=== PATIENT | male | born 1970 | race Caucasian/White ===

== ENCOUNTER 2017-06-15 12:35 | Observation (INO) | payer OTHER ==
[~2017-06-15] VITALS: Ht 190.5 cm; Wt 101.6 kg
[~2017-06-15 12:35] MED LIST: HYDR10SO PO; LISI-363 PO; LITH1TAB3 PO; METHY10 PO
[2017-06-15 13:00] VITALS: BP 107/84; PULSE 81; RESP 20; TEMP 97; O2SAT 98
[2017-06-15 14:00] VITALS: BP 107/84; PULSE 81; RESP 20; TEMP 97; O2SAT 98
[2017-06-15] MEDS ORDERED: NALOXONE HCL 0.4 MG/ML AMP IV PUSH PRN (14:00)
[2017-06-15] MEDS ORDERED: ACETAMINOPHEN 325 MG TAB PO PRN (14:00)
[2017-06-15] MEDS ORDERED: SENNOSIDES 8.6 MG TAB PO PRN (14:00)
[2017-06-15] MEDS ORDERED: ONDANSETRON HCL 4 MG/2 ML VIAL IVP PRN (14:00)
[2017-06-15] MEDS ORDERED: SODIUM CHLORIDE 0.9% FLUSH 10 ML FLUSH IV FLUSH PRN (14:00)
--- NOTE | 2017-06-15 14:44 | HHI.HP ---
[facility] Primary [facility]ician No Primary Care Physician Admission Diagnosis Left nephrolithiasis Hydronephrosis Right lower lobe pneumonia Diagnoses: (1) Nephrolithiasis (2) Hydronephrosis (3) Pneumonia Chief Complaint: Flank pain Travel History International Travel<30 Days: No Contact w/Intl Traveler <30 Da: No Traveled to Known Affected Are: No History of Present Illness This is a 46-year-old male patient known medical history of ADHD, OCD and hypertension who presented to the ED with a 2 day history of bilateral flank pain. Patient does admit to history of frequent kidney stones. States he has passed these on his own usually. Patient does state that the pain was bilateral in his leg area, more so in his left side than right, rated a 10 out of 10 on pain scale and was intermittent in nature, denies any known aggravating or alleviating factors. Denies any recent illness including fever, chills, cough, abdominal pain, nausea, vomiting, diarrhea dysuria. Patient does follow with the primary care doctor but does not know the name. Patient denies any home medications. Review of Systems Constitutional: DENIES: Fatigue, Fever, Chills Eyes: DENIES: Blurred vision, Diplopia Respiratory: DENIES: Cough, Sputum production, Shortness of breath Cardiovascular: DENIES: Chest pain Gastrointestinal: DENIES: Abdominal pain, Black stools, Bloody stools, Constipation, Diarrhea, Nausea, Vomiting, Difficulty Swallowing Genitourinary: COMPLAINS OF: Dysuria Musculoskeletal: DENIES: Joint pain Hematologic/lymphatic: DENIES: Bruising Immunologic/allergic: DENIES: Eczema Psychiatric: COMPLAINS OF: Anxiety Except as stated in HPI: all other systems reviewed are Neg Flank pain Past Family Social History Past Medical History ADHD OCD Anxiety depression Hyperlipidemia Hypertension Frequent kidney stones Past Surgical History Cholecystectomy L5-S1 repair Reported Medications Active No Active Prescriptions or Reported Medications Allergies: Coded Allergies: No Known Allergies (Verified Adverse Reaction, Unknown, 06/15/17) Active Ordered Medications Current Medications Medications (Trade) Dose Ordered Sig/Noah Route Start Time Stop Time Status Last Admin Lactated Ringer's 1,000 ml @ 100 mls/hr Q10H IV 06/15/17 13:56 06/15/17 14:52 (NS Flush) 2 ml UNSCH PRN IV FLUSH 06/15/17 14:00 (NS Flush) 2 ml BID IV FLUSH 06/15/17 21:00 (Tylenol) 650 mg Q4H PRN PO 06/15/17 14:00 06/15/17 14:51 (Zofran Inj) 4 mg Q6H PRN IVP 06/15/17 14:00 (Narcan Inj) 0.4 mg UNSCH PRN IV PUSH 06/15/17 14:00 (Senokot) 17.2 mg Q12H PRN PO 06/15/17 14:00 Family History Denies any significant family medical history. Social History Denies any history or current tobacco abuse. Denies any alcohol or illicit drug use. Physical Exam Vital Signs Vital Signs Date Time Temp Pulse Resp B/P (MAP) Pulse Ox O2 Delivery O2 Flow Rate FiO2 06/15/17 13:00 97.0 81 20 107/84 (92) 98 Physical Exam GENERAL: Well-developed, well-nourished patient in NAD. Disheveled SKIN: Warm and dry. No rash. HEAD: Normocephalic. Atraumatic. EYES: Pupils equal and round. No scleral icterus. No injection or drainage. ENT: No nasal bleeding or discharge. Mucous membranes pink and moist. NECK: Supple. Trachea midline. CARDIOVASCULAR: Regular rate and rhythm. S1, S2 noted. No murmur appreciated. RESPIRATORY: No accessory muscle use. Clear to auscultation. Breath sounds equal bilaterally. GASTROINTESTINAL: Abdomen soft, non-tender, nondistended. Normoactive bowel sounds x4. : Bilateral CVA tenderness. MUSCULOSKELETAL: No obvious deformities. Extremities without clubbing, cyanosis , or edema. NEUROLOGICAL: Awake and alert. No obvious cranial nerve deficits. Motor grossly within normal limits. 5/5 muscle strength in bilateral upper and lower extremities. Normal speech. PSYCHIATRIC: Appropriate mood and affect; insight and judgment normal. Septic Shock Reassessment Septic shock perfusion: reassessment completed Caprini VTE Risk Assessment Caprini VTE Risk Assessment: No/Low Risk (score <= 1) Caprini Risk Assessment Model Point Value = 1 Point Value = 2 Point Value = 3 Point Value = 5 Age 41-60 Minor surgery BMI > 25 kg/m2 Swollen legs Varicose veins or History of unexplained or recurrent spontaneous Oral contraceptives or hormone replacement Sepsis (< 1 month) Serious lung disease, including pneumonia (< 1 month) Abnormal pulmonary function Acute myocardial infarction Congestive heart failure (< 1 month) History of inflammatory bowel disease Medical patient at bed rest Age 61-74 Arthroscopic surgery Major open surgery (> 45 min) Laparoscopic surgery (> 45 min) Malignancy Confined to bed (> 72 hours) Immobilizing plaster cast Central venous access Age >= 75 History of VTE Family history of VTE Factor V Leiden Prothrombin [id number] Lupus anticoagulant Anticardiolipin antibodies Elevated serum homocysteine Heparin-induced thrombocytopenia Other congenital or acquired thrombophilia Stroke (< 1 month) Elective arthroplasty Hip, pelvis, or leg fracture Acute spinal cord injury (< 1 month) Prophylaxis Regimen Total Risk Factor Score Risk Level Prophylaxis Regimen 0-1 Low Early ambulation 2 Moderate Order ONE of the following: *Sequential Compression Device (SCD) *Heparin 5000 units SQ BID 3-4 Higher Order ONE of the following medications: *Heparin 5000 units SQ TID *Enoxaparin/Lovenox 40 mg SQ daily (WT < 150 kg, CrCl > 30 mL/min) *Enoxaparin/Lovenox 30 mg SQ daily (WT < 150 kg, CrCl > 10-29 mL/min) *Enoxaparin/Lovenox 30 mg SQ BID (WT < 150 kg, CrCl > 30 mL/min) AND/OR *Sequential Compression Device (SCD) 5 or more Highest Order ONE of the following medications: *Heparin 5000 units SQ TID (Preferred with Epidurals) *Enoxaparin/Lovenox 40 mg SQ daily (WT < 150 kg, CrCl > 30 mL/min) *Enoxaparin/Lovenox 30 mg SQ daily (WT < 150 kg, CrCl > 10-29 mL/min) *Enoxaparin/Lovenox 30 mg SQ BID (WT < 150 kg, CrCl > 30 mL/min) AND *Sequential Compression Device (SCD) Assessment and Plan Problem List: (1) Hydronephrosis ICD Code: N13.30 - Unspecified hydronephrosis (2) Nephrolithiasis ICD Code: N20.0 - Calculus of kidney (3) Pneumonia ICD Code: J18.9 - Pneumonia, unspecified organism Assessment and Plan This is a 46-year-old male patient known medical history of ADHD, OCD and hypertension who presented to the ED with a 2 day history of bilateral flank pain. Patient does admit to history of frequent kidney stones. Nephrolithiasis Hydronephrosis Acute kidney injury suspect secondary to above. - Abdomen/pelvis CT reviewed showing 4 x 7 calcified proximal ureteral calculus with resultant moderate left-sided hydronephrosis. Additional bilateral nonobstructing calyceal calculi measuring up to 8 mm on the left and 3-4 mm in the right. - Urology has been consulted, patient will undergo surgery today at the [facility], will be transferred. - Creatinine 1.4 upon presentation. Continue IV fluids. Avoid nephrotoxins. Continue to follow BMP. Right lower lobe community-acquired pneumonia - CT reviewed showing patchy diffuse airspace consolidation in the right lower lobe consistent with infectious or inflammatory process. - Patient has been started on azithromycin and ceftriaxone IV. Will continue. Monitor for any signs of infection. Patient is afebrile. He does have leukocytosis with left band shift. Follow CBC. Elevated random glucose upon presentation: 271. Will add hemoglobin A1c to labs. Patient denies any history of diabetes. ADA diet. DVT prophylaxis: SCDs. Teresa Morel Jun 15, 2017 14:44
[2017-06-15] MEDS: LACTATED RINGER'S 1000 ML INJ 1,000 ML IV SCH ×2 (14:52→23:54)
[2017-06-15] MEDS: cefTRIAXone INJ 1,000 MG in SODIUM CHLORIDE 0.9% INJ 100 ML IV SCH (16:35)
[2017-06-15] MEDS: AZITHROMYCIN INJ 500 MG in SODIUM CHLOR 0.9% 250 ML INJ 250 ML IV SCH (17:03)
[2017-06-15 17:09] VITALS: RESP 18
[2017-06-15] MEDS ORDERED: ACETAMINOPHEN/HYDROcodone 325 MG/5 MG TAB PO PRN (17:15)
[2017-06-15] MEDS: MORPHINE SULFATE 2 MG/ML SYRINGE IV PUSH PRN ×2 (17:48→22:01)
[2017-06-15 20:00] VITALS: BP 115/59; PULSE 80; RESP 18; TEMP 98.1; O2SAT 98
[2017-06-15] MEDS: ACETAMINOPHEN/HYDROcodone 325 MG/5 MG TAB PO PRN ×2 (20:19→23:54)
[2017-06-15] MEDS: SODIUM CHLORIDE 0.9% FLUSH 10 ML FLUSH IV FLUSH SCH (20:19)
[2017-06-16 00:09] VITALS: BP 111/68; PULSE 76; RESP 18; TEMP 97.4; O2SAT 96
[2017-06-16] MEDS ORDERED: CHLORHEXIDINE GLUCONATE 2 % 1 PACK (2 CLOTHS) TOPICAL PRN (00:15)
[2017-06-16] MEDS ORDERED: POVIDONE IODINE 5% (ANTISEPSIS KIT) 4 APPLICATIONS EACH NARE PRN (00:15)
[2017-06-16] MEDS ORDERED: LACTATED RINGER'S 1000 ML IV PRN (00:15)
[2017-06-16] MEDS ORDERED: SODIUM CHLORID 0.9% 500 ML IV PRN (00:15)
[2017-06-16] MEDS: MORPHINE SULFATE 2 MG/ML SYRINGE IV PUSH PRN ×3 (02:16→20:52)
[2017-06-16 04:00] VITALS: BP 101/67; PULSE 74; RESP 18; TEMP 98.1; O2SAT 97
[2017-06-16] MEDS: ACETAMINOPHEN/HYDROcodone 325 MG/5 MG TAB PO PRN ×2 (05:08→12:20)
[2017-06-16 05:55] LABS: BASOPHIL % 0.4 % (0.0-2.0); EOSINOPHIL # 0.2 TH/MM3 (0-0.4); EOSINOPHIL % 2.1 % (0.0-4.0); HEMATOCRIT 40.3 % (39.0-51.0); HEMOGLOBIN 13.7 GM/DL (13.0-17.0); LYMPH % 20.5 % (9.0-44.0); LYMPHOCYTE # 1.5 TH/MM3 (1.0-4.8); MEAN CELL VOLUME 90.2 FL (80.0-100.0); MEAN CORPUSCULAR HEMOGLOBIN 30.7 PG (27.0-34.0); MEAN PLATELET VOLUME 7.4 FL (7.0-11.0); MONO % 9.8 % (0.0-8.0); MONOCYTE # 0.7 TH/MM3 (0-0.9); NEUT % 67.2 % (16.0-70.0); PLATELET COUNT 317 TH/MM3 (150-450); RED BLOOD COUNT 4.47 MIL/MM3 (4.50-5.90); RED CELL DISTRIBUTION WIDTH 13.8 % (11.6-17.2); WHITE BLOOD COUNT 7.4 TH/MM3 (4.0-11.0)
[2017-06-16 06:11] LABS: BICARBONATE 23.3 MEQ/L (21.0-32.0); CALCIUM 8.8 MG/DL (8.5-10.1); CREATININE 1.25 MG/DL (0.60-1.30)
--- NOTE | 2017-06-16 06:20 | RADRPT ---
EXAM DATE/TIME: 06/16/2017 04:55 [place] COMPARISON: No previous studies available for comparison. INDICATIONS : Left flank pain MEDICAL HISTORY : Hypertension. Renal calculi. Cholelithiasis SURGICAL HISTORY : Cholecystectomy. ENCOUNTER: Subsequent ACUITY: 2 days PAIN SCORE: 6/10 LOCATION: Left flank FINDINGS: Supine view of the abdomen was performed. Cervical clips within the right upper quadrant. The abdomi nal bowel gas pattern is normal. Venous calcifications overlie the pelvis. No abnormal masses, calci fications, or organomegaly is seen. The osseous structures are unremarkable. CONCLUSION: No discernible renal or ureteral stones. Felix Diggs Jr., MD on June 16, 2017 at 6:17 Board Certified Radiologist. This report was verified electronically.
[2017-06-16 08:00] VITALS: BP 124/66; PULSE 85; RESP 16; TEMP 97.3; O2SAT 96
[2017-06-16] MEDS ORDERED: IOHEXOL 350 MG/ML 50 ML BTL (for RAD DIAG) OTHER ONE (08:58)
[2017-06-16] MEDS: SODIUM CHLORIDE 0.9% FLUSH 10 ML FLUSH IV FLUSH SCH ×2 (09:00→20:54)
[2017-06-16] MEDS ORDERED: DO NOT ADM ANY ANTICOAGULANT DRUGS PRN (09:18)
[2017-06-16] MEDS ORDERED: MIDAZOLAM HCL 2 MG/2 ML VIAL ONE (09:24)
--- NOTE | 2017-06-16 09:34 | MP ---
cc: Raymond Chinchilla MD, Arash MD DATE OF OPERATION: 06/16/2017 DATE OF PROCEDURE: 06/16/2017. PREOPERATIVE DIAGNOSES: 1. Left proximal ureteral stone with mild hydronephrosis. 2. Left flank pain. 3. Bilateral nonobstructing stones. POSTOPERATIVE DIAGNOSES: 1. Left proximal ureteral stone with mild hydronephrosis. 2. Left flank pain. 3. Bilateral nonobstructing stones. PROCEDURE PERFORMED: 1. Cystourethroscopy. 2. Left retrograde pyelogram. 3. Left ureteral stent placement. SURGEON: Raymond Chinchilla MD ANESTHESIA: General. COMPLICATIONS: None. PREOPERATIVE ANTIBIOTICS: Rocephin 1 gram IV. DRAINS: A 6 x 28 double-J left ureteral stent. ESTIMATED BLOOD LOSS: Minimal. SPECIMENS: None. DISPOSITION: Stable to recovery. INDICATIONS FOR PROCEDURE: The patient is a 46-year-old male with a longstanding history of kidney stones, who presented to [facility] yesterday with acute onset of bilateral flank pain, left greater than right, 9/10 in nature, associated with nausea and chills. CT abdomen and pelvis without contrast was done, which showed bilateral nonobstructing stones, but also an 8 mm proximal left ureteral stone with mild hydronephrosis. The patient was then transferred to the main hospital for further evaluation. Due to persistent pain and the size and location of the stone, the patient was then set up for a cystoscopy and stent placement. After risks, benefits and alternatives were explained to the patient, the patient elected to proceed, informed consent was obtained. DETAILS OF PROCEDURE: The patient was properly identified and brought back to the operating room where he was laid supine on the operating table. Proper timeout was performed. Under direction of Anesthesiology, the patient was intubated and induced under general anesthetic. The patient had received 1 gram of Rocephin in the past 24 hours, therefore preoperative antibiotics were not indicated. The patient was then placed in the dorsal lithotomy position, prepped and draped in the normal sterile surgical fashion. A rigid cystoscope was carefully passed into the bladder per urethra without any difficulty. The bladder was then drained. The bladder was carefully inspected. There were several small calcifications within the bladder itself. These were irrigated out. The rest of the bladder appeared to be normal. No evidence of bladder tumors, stones, or trabeculations. Both ureteral orifices were identified and appeared in normal anatomical location. A 5-Sudanese open-ended ureteral catheter was inserted just inside the left ureteral orifice. Left retrograde pyelogram was performed, which showed a nondilated ureter up to a transition point in the proximal ureter where there was a filling defect and proximal hydronephrosis, consistent with the findings on the CAT scan. At this time, the wire was then passed through the ureteral catheter up into the upper pole of the left kidney without difficulty. The ureteral catheter was then removed. A 6 x 28 double-J stent was then backloaded over the wire up into the left kidney. The wire was removed. Fluoroscopic imaging confirmed good positioning of the stent. The bladder was then drained. This concluded the procedure. The patient was extubated and sent to recovery in stable condition. He will be transferred back to the floor. As long as he does well later today, he can be discharged home and follow up with his urologist, Dr. Vail in [place] for definitive treatment of the stone. Raymond Chinchilla MD EMF/KD , 09:09 AM , 09:32 AM
--- NOTE | 2017-06-16 09:51 | MB ---
cc: Raymond Chinchilla MD, Evan M MD DATE: 06/15/2017 REASON FOR CONSULTATION: 1. Left flank pain. 2. Left proximal ureteral stone. 3. Bilateral ureteral stones. HISTORY OF PRESENT ILLNESS: The patient is a 46-year-old male with history of kidney stones who presented to the [facility] ED with a 2-day history of bilateral flank pain, worse on the left than the right, 10/10 in nature. He has had kidney stones in the past and usually has passed these on his own. He has described a complaint of chills, but no fevers. Denied nausea, vomiting, dysuria or hematuria. He was seen by my partner, Dr. Mead, in the past who has treated his stones in the past as well. In the ER, he had a CT abdomen and pelvis without contrast done which showed bilateral nonobstructing kidney stones as well as an 8 mm left proximal ureteral stone with left-sided hydronephrosis. The patient was then transferred to [facility] for further evaluation. Currently, the patient still complains of left-sided flank pain, but it is relieved with IV pain medication. REVIEW OF SYSTEMS: See HPI otherwise all systems are otherwise negative. PAST MEDICAL HISTORY: Significant for ADHD, OCD, anxiety, depression, kidney stones, hypertension, hyperlipidemia. PAST SURGICAL HISTORY: Cholecystectomy, cystostomy, stent placement, L5 through S1 repair. REPORTED MEDICATIONS: None. ALLERGIES: NONE. FAMILY HISTORY: Denies any urolithiasis or genitourinary disease. SOCIAL HISTORY: Denies history of current tobacco use, denies any alcohol or illicit drug use. PHYSICAL EXAMINATION: VITAL SIGNS: Temperature 97, pulse 81, respiratory rate 20, BP 107/84, sat 98% on room air. GENERAL: He is alert and oriented x3, no apparent distress, pleasant gentleman who appears stated age. HEENT: Head is normocephalic, atraumatic. Eyes no scleral icterus. Extraocular muscles intact. External nares normal. External auditory canals normal. NECK: Supple. Trachea is midline. No JVD. LUNGS: Clear to auscultation bilaterally. No wheezes, rales, rhonchi. HEART: Regular rate and rhythm. No murmurs, gallops, or rub. ABDOMEN: Soft, nontender, nondistended, positive bowel sounds. GENITOURINARY: Penis circumcised. Testes descended bilaterally, normal size and consistency without mass. RECTAL EXAM: Not indicated at this time. EXTREMITIES: Nontender. No clubbing, cyanosis, or edema. MUSCULOSKELETAL: Full range of motion in all 4 extremities. NEUROLOGIC: Cranial nerves 2-12 intact. Strength 5/5 in all 4 extremities. SKIN: No ulcers, rashes. Warm and dry. He does have tattoos. LABORATORY DATA: White count 16.4, hemoglobin 14.1, hematocrit 41.3, platelet count 362. Sodium 132, potassium ____, chloride 104, bicarbonate 22, BUN 4, creatinine 1.4, glucose 271. His urine does show 250 glucose. IMAGING STUDIES: CT abdomen and pelvis without contrast images were reviewed and agreed with radiologist report. The patient has bilateral nonobstructing stones. He has a left proximal 7 mm long stone causing mild left hydronephrosis. No obvious bladder mass. ASSESSMENT: The patient is a 46-year-old male with a history of kidney stones who presents with 2-day history of left flank pain with chills and was found to have bilateral stones as well as a left proximal 7 mm stone causing mild hydronephrosis. PLAN: We will transfer the patient to [facility] and keep him n.p.o. after midnight. We will schedule for cystoscopy, bilateral retrograde and possible bilateral stent insertion tomorrow. I discussed the risks, benefits, and alternatives of this plan with the patient including anesthetic risks, need for additional procedures, as well as the inability to successfully place a stent. He understood all the risks. All questions were answered and he elected to proceed. Raymond Chinchilla MD EMF/SA/ , 06:52 PM , 07:27 PM
[2017-06-16] MEDS ORDERED: *morphine SULFATE 4 MG/ML PERIprocedure ONLY ONE (10:04)
[2017-06-16 12:00] VITALS: BP_SYST 123; BP_SYST 177; BP_DIAS 77; BP_DIAS 94; PULSE 82; PULSE 97; RESP 16; TEMP 97.2; TEMP 98; O2SAT 100; O2SAT 97
[2017-06-16] MEDS ORDERED: ONDANSETRON HCL 4 MG/2 ML VIAL IV ONE (12:00)
[2017-06-16] MEDS ORDERED: PHENYLEPH/NS 1000 MCG/10 ML SYR IV ONE (12:00)
[2017-06-16] MEDS ORDERED: DEXAMETHASONE SOD PHOS 4 MG/ML VIAL IV ONE (12:00)
[2017-06-16] MEDS ORDERED: PROPOFOL 200 MG/20 ML AMP IV ONE (12:00)
[2017-06-16] MEDS ORDERED: LIDOCAINE HCL 1% PF 5 ML SYRINGE OTHER ONE (12:00)
[2017-06-16 13:28] LABS: HEMOGLOBIN A1C 10.1 % (4.3-6.0)
[2017-06-16 16:49] LABS: BICARBONATE 26.6 MEQ/L (21.0-32.0); CALCIUM 8.5 MG/DL (8.5-10.1); CREATININE 1.63 MG/DL (0.60-1.30)
[2017-06-16] MEDS: LACTATED RINGER'S 1000 ML INJ 1,000 ML IV SCH ×2 (17:25→19:56)
[2017-06-16] MEDS: AZITHROMYCIN INJ 500 MG in SODIUM CHLOR 0.9% 250 ML INJ 250 ML IV SCH (17:25)
[2017-06-16] MEDS ORDERED: GLUCAGON 1 MG/ML VIAL OTHER PRN (17:45)
[2017-06-16] MEDS ORDERED: DEXTROSE 50% IN WATER 50 ML VIAL(D50) IV PUSH PRN (17:45)
--- NOTE | 2017-06-16 17:59 | HHI.PR ---
Subjective Remarks Pt states his back bothers him, states he has a hx of spinal stenosis and the bed makes it worst. No nausea or vomiting. Wasn't aware that his HbA1C was that elevated and was once told he may have DM but never overt DM. He states he has no insurance. Doesn't have money to see a Dr. Pt admits to me that for his back pain he at times gets his pain meds in the streets for relief. He admits that he drinks a lot of pepsi and eats bread but doesn't really like sweets that much Objective Vitals Vital Signs Date Time Temp Pulse Resp B/P (MAP) Pulse Ox O2 Delivery O2 Flow Rate FiO2 06/16/17 12:00 97.2 82 16 123/77 (92) 97 06/16/17 10:10 77 14 101/67 (78) 97 Nasal Cannula 2 06/16/17 10:00 75 14 103/67 (79) 95 Nasal Cannula 2 06/16/17 09:45 76 14 102/66 (78) 99 Nasal Cannula 4 06/16/17 09:30 76 14 104/68 (80) 98 Nasal Cannula 4 06/16/17 09:18 98.5 78 14 98/59 (72) 94 Nasal Cannula 4 06/16/17 08:00 97.3 85 16 124/66 (85) 96 06/16/17 04:00 98.1 74 18 101/67 (78) 97 06/16/17 00:09 97.4 76 18 111/68 (82) 96 06/15/17 20:00 98.1 80 18 115/59 (77) 98 I/O 06/15/17 06/15/17 06/15/17 06/16/17 06/16/17 06/16/17 07:00 15:00 23:00 07:00 15:00 23:00 Intake Total 790 ml 730 ml 500 ml Output Total 0 ml Balance 790 ml 730 ml 500 ml Intake Oral 240 ml 120 ml IV Total 550 ml 610 ml 500 ml Output Estimated Blood Loss 0 ml # Voids 2 2 # Bowel Movements 0 Result Diagram: 06/16/17 0507 06/16/17 1534 Imaging Last Impressions Abdomen X-Ray 06/16/17 0600 Signed Impressions: Service Date/Time: Saturday, June 16, 2017 04:55 - CONCLUSION: No discernible renal or ureteral stones. Felix Diggs Jr., MD Objective Remarks GENERAL: Disheveled CARDIOVASCULAR: Regular rate and rhythm. RESPIRATORY: No accessory muscle use. Clear to auscultation. Breath sounds equal bilaterally. GASTROINTESTINAL: Abdomen soft, non-tender, nondistended. Normoactive bowel sounds x4. MUSCULOSKELETAL: No obvious deformities. Extremities without edema. NEUROLOGICAL: Awake and alert. No obvious cranial nerve deficits. Normal speech , edentulous. A/P Problem List: (1) Hydronephrosis ICD Code: N13.30 - Unspecified hydronephrosis (2) Nephrolithiasis ICD Code: N20.0 - Calculus of kidney (3) Pneumonia ICD Code: J18.9 - Pneumonia, unspecified organism Assessment and Plan This is a 46-year-old male patient known medical history of ADHD, OCD and hypertension who presented to the ED with a 2 day history of bilateral flank pain. Patient does admit to history of frequent kidney stones. Nephrolithiasis Hydronephrosis Acute kidney injury suspect secondary to above- worsening - Abdomen/pelvis CT reviewed showing 4 x 7 calcified proximal ureteral calculus with resultant moderate left-sided hydronephrosis. Additional bilateral nonobstructing calyceal calculi measuring up to 8 mm on the left and 3-4 mm in the right. - Urology following he is s/p Cystourethroscopy, Left retrograde pyelogram. Left ureteral stent placement. - Creatinine 1.4 upon presentation. Continue IV fluids. Avoid nephrotoxins. repeat BMP showed Cr of 1.63 this pm. Repeat BMP in AM. continue IVFs and encourage po hydration. Right lower lobe community-acquired pneumonia - CT 06/15/17 reviewed showing patchy diffuse airspace consolidation in the right lower lobe consistent with infectious or inflammatory process. - Patient has been started on azithromycin and ceftriaxone IV. Will continue. Monitor for any signs of infection. Patient is afebrile. He does have leukocytosis with left band shift. Follow CBC. Elevated random glucose upon presentation: 271. Hemoglobin A1c found to be 10. Patient denies any history of diabetes. ADA diet. started him on levemir 10units qhs, medium dose sliding scale novolog and will consult elementary educator and surgical aide to speak w patient. CM also consulted for d/c planning. DVT prophylaxis: SCDs. Discharge Planning worsening creatinine levels. BS this pm in the 's, pt newly diagnosed w DM will need MARRY-inh once Cr levels back to normal. urology has cleared pt for d/c however, will continue to monitor pt for now due to above problems. Jacklyn Hernandez MD Jun 16, 2017 17:59
[2017-06-16] MEDS: cefTRIAXone INJ 1,000 MG in SODIUM CHLORIDE 0.9% INJ 100 ML IV SCH (18:34)
--- NOTE | 2017-06-16 19:01 | EKG ---
Date Performed: 06/15/2017 Time Performed: 18:34:31 PTAGE: 46 years EKG: Sinus rhythm NONDIAGNSTIC Q WAVES IN THE INFERIOR LEADS BORDERLINE ECG PREVIOUS TRACING : 12/23/2010 21.37 DOCTOR: Michael Green Interpretating Date/Time 06/16/2017 18:59:09
[2017-06-16 20:07] VITALS: BP 116/60; PULSE 92; RESP 18; TEMP 97.8; O2SAT 96
[2017-06-16] MEDS: INSULIN ASPART SUPPLEMENTAL SCALE SQ SCH (20:54)
[2017-06-16] MEDS: INSULIN DETEMIR 100 UNITS/ML VIAL SQ SCH (20:54)
[2017-06-17] VITALS (7 sets, daily range): BP systolic 96–113; BP diastolic 58–73; PULSE 72–89; RESP 16–19; TEMP 97.2–98.7; O2SAT 92–97
[2017-06-17] MEDS: LACTATED RINGER'S 1000 ML INJ 1,000 ML IV SCH (05:26)
[2017-06-17 06:13] LABS: AUTOMATED NEUTROPHIL # 5.9 TH/MM3 (1.8-7.7); BASOPHIL % 0.4 % (0.0-2.0); EOSINOPHIL # 0.2 TH/MM3 (0-0.4); HEMATOCRIT 41.1 % (39.0-51.0); LYMPH % 20.2 % (9.0-44.0); LYMPHOCYTE # 1.7 TH/MM3 (1.0-4.8); MEAN CELL VOLUME 90.6 FL (80.0-100.0); MEAN CORPUSCULAR HEMOGLOBIN 30.7 PG (27.0-34.0); MEAN PLATELET VOLUME 7.1 FL (7.0-11.0); MONOCYTE # 0.7 TH/MM3 (0-0.9); NEUT % 69.4 % (16.0-70.0); PLATELET COUNT 365 TH/MM3 (150-450); RED BLOOD COUNT 4.54 MIL/MM3 (4.50-5.90); RED CELL DISTRIBUTION WIDTH 14.2 % (11.6-17.2); WHITE BLOOD COUNT 8.6 TH/MM3 (4.0-11.0)
[2017-06-17 06:57] LABS: BICARBONATE 32.2 MEQ/L (21.0-32.0); CALCIUM 9.2 MG/DL (8.5-10.1); CREATININE 0.99 MG/DL (0.60-1.30); MAGNESIUM 1.9 MG/DL (1.5-2.5)
[2017-06-17] MEDS: INSULIN ASPART SUPPLEMENTAL SCALE SQ SCH ×4 (07:45→20:55)
[2017-06-17] MEDS: SODIUM CHLORIDE 0.9% FLUSH 10 ML FLUSH IV FLUSH SCH ×2 (09:00→20:55)
[2017-06-17] MEDS ORDERED: SODIUM CHLORID 0.9% 500 ML INJ 500 ML IV ONE (15:15)
[2017-06-17] MEDS ORDERED: SODIUM CHLOR 0.9% 1000 ML INJ 1,000 ML IV SCH (15:15)
[2017-06-17] MEDS ORDERED: GLUCTES12 (15:39)
[2017-06-17] MEDS ORDERED: BIOM30MI (15:39)
[2017-06-17] MEDS ORDERED: INSU1MIS15 (15:39)
[2017-06-17] MEDS ORDERED: GLUCKIT15 (15:39)
[2017-06-17] MEDS ORDERED: LANCETS1 MI1 (15:39)
--- NOTE | 2017-06-17 15:41 | HHI.PR ---
Subjective Remarks Patient complaining of pain especially with urination but also states that it is mainly his back. Patient insists on getting IV morphine however I did explain to him that pain management consists of pills and IV only for breakthrough pain. He is agreeable to one-time dose of IV morphine. Denies any nausea or vomiting. Discussed with RN, patient's blood pressure on the low normal. Objective Vitals Vital Signs Date Time Temp Pulse Resp B/P (MAP) Pulse Ox O2 Delivery O2 Flow Rate FiO2 06/17/17 12:19 98.7 81 18 100/58 (72) 94 06/17/17 12:00 98.2 83 16 109/70 (83) 92 06/17/17 08:00 97.9 86 18 111/64 (80) 95 06/17/17 03:25 97.2 73 18 104/68 (80) 96 06/17/17 00:40 98.0 72 18 96/67 (77) 97 06/16/17 21:43 Room Air 06/16/17 20:57 18 06/16/17 20:07 97.8 92 18 116/60 (78) 96 I/O 06/16/17 06/16/17 06/16/17 06/17/17 06/17/17 06/17/17 07:00 15:00 23:00 07:00 15:00 23:00 Intake Total 730 ml 500 ml 480 ml Output Total 0 ml Balance 730 ml 500 ml 480 ml Intake Oral 120 ml 480 ml IV Total 610 ml 500 ml Output Estimated Blood Loss 0 ml # Voids 2 1 # Bowel Movements 0 0 Result Diagram: 06/17/17 0535 06/17/17 0535 Imaging Last Impressions Abdomen X-Ray 06/16/17 0600 Signed Impressions: Service Date/Time: Friday, June 16, 2017 04:55 - CONCLUSION: No discernible renal or ureteral stones. Felix Diggs Jr., MD Objective Remarks GENERAL: Disheveled CARDIOVASCULAR: Regular rate and rhythm. RESPIRATORY: No accessory muscle use. Clear to auscultation. Breath sounds equal bilaterally. GASTROINTESTINAL: Abdomen soft, non-tender, nondistended. Normoactive bowel sounds x4. MUSCULOSKELETAL: No obvious deformities. Extremities without edema. NEUROLOGICAL: Awake and alert. No obvious cranial nerve deficits. Normal speech , edentulous. A/P Problem List: (1) Hydronephrosis ICD Code: N13.30 - Unspecified hydronephrosis (2) Nephrolithiasis ICD Code: N20.0 - Calculus of kidney (3) Pneumonia ICD Code: J18.9 - Pneumonia, unspecified organism Assessment and Plan This is a 46-year-old male patient known medical history of ADHD, OCD and hypertension who presented to the ED with a 2 day history of bilateral flank pain. Patient does admit to history of frequent kidney stones. Nephrolithiasis Hydronephrosis Acute kidney injury suspect secondary to above- worsening - Abdomen/pelvis CT reviewed showing 4 x 7 calcified proximal ureteral calculus with resultant moderate left-sided hydronephrosis. Additional bilateral nonobstructing calyceal calculi measuring up to 8 mm on the left and 3-4 mm in the right. - Urology following he is s/p Cystourethroscopy, Left retrograde pyelogram. Left ureteral stent placement. - Creatinine 1.4 upon presentation. Continue IV fluids. Avoid nephrotoxins. Cr increased to 1.63 then now to 0.99 Repeat BMP in AM. continue IVFs and encourage po hydration. Right lower lobe community-acquired pneumonia - CT 06/15/17 reviewed showing patchy diffuse airspace consolidation in the right lower lobe consistent with infectious or inflammatory process. - Patient on azithromycin and ceftriaxone IV. Will continue. Monitor for any signs of infection. Patient is afebrile. feels a lot better. Elevated random glucose upon presentation: 271. Hemoglobin A1c found to be 10.1. Patient denies any history of diabetes. ADA diet. on levemir 10units qhs , medium dose sliding scale novolog and will consult staff educator and selvage machine operator to speak w patient. CM also consulted for d/c planning. DVT prophylaxis: SCDs. Discharge Planning Pt newly diagnosed w DM will need MARRY-inh however BP's low normal. One time 500ml NS bolus given w gentle hydration. consider starting him on low dose lisinopril 2.5mg daily tomorrow. urology has cleared pt for d/c however, will continue to monitor pt for now due to above problems. Both RD and staff educator consulted and hopefully will evaluate pt tomorrow prior to d/c CM consulted for d/c planning as pt has no insurance. Jacklyn Hernandez MD Jun 17, 2017 15:41
[2017-06-17] MEDS ORDERED: POTASSIUM CHLORIDE 20 MEQ CONTROLLED RELEASE TAB PO ONE (15:45)
[2017-06-17] MEDS: cefTRIAXone INJ 1,000 MG in SODIUM CHLORIDE 0.9% INJ 100 ML IV SCH (17:28)
[2017-06-17] MEDS: MORPHINE SULFATE 2 MG/ML SYRINGE IV PUSH PRN (17:29)
[2017-06-17] MEDS: AZITHROMYCIN INJ 500 MG in SODIUM CHLOR 0.9% 250 ML INJ 250 ML IV SCH (18:04)
[2017-06-17] MEDS: INSULIN DETEMIR 100 UNITS/ML VIAL SQ SCH (20:50)
[2017-06-18 04:16] VITALS: BP 122/75; PULSE 75; RESP 19; TEMP 97.6; O2SAT 96
[2017-06-18] MEDS: ACETAMINOPHEN/HYDROcodone 325 MG/5 MG TAB PO PRN (05:19)
[2017-06-18 05:59] LABS: BICARBONATE 28.8 MEQ/L (21.0-32.0); CALCIUM 8.4 MG/DL (8.5-10.1); CREATININE 0.73 MG/DL (0.60-1.30); MAGNESIUM 1.6 MG/DL (1.5-2.5)
[2017-06-18 08:00] VITALS: BP 114/66; PULSE 76; RESP 18; TEMP 98.6; O2SAT 95
[2017-06-18] MEDS: SODIUM CHLORIDE 0.9% FLUSH 10 ML FLUSH IV FLUSH SCH (09:00)
[2017-06-18] MEDS: INSULIN ASPART SUPPLEMENTAL SCALE SQ SCH ×2 (10:15→12:00)
[2017-06-18 12:00] VITALS: BP 121/67; PULSE 68; RESP 19; TEMP 98.5; O2SAT 97
[2017-06-18] MEDS: MORPHINE SULFATE 2 MG/ML SYRINGE IV PUSH PRN (12:56)
[2017-06-18] MEDS ORDERED: METF500T PO (13:54)
--- NOTE | 2017-06-18 13:54 | HHI.DS ---
Discharge Summary Admission Date Jun 15, 2017 at 12:45 Discharge Date: Jun 18, 2017 Admitting Diagnosis Left nephrolithiasis Hydronephrosis Right lower lobe pneumonia (1) Hydronephrosis ICD Code: N13.30 - Unspecified hydronephrosis (2) Nephrolithiasis ICD Code: N20.0 - Calculus of kidney (3) Pneumonia ICD Code: J18.9 - Pneumonia, unspecified organism Procedures Cystourethroscopy, Left retrograde pyelogram. Left ureteral stent placement. Brief History - From Admission HPI from the admitting physician This is a 46-year-old male patient known medical history of ADHD, OCD and hypertension who presented to the ED with a 2 day history of bilateral flank pain. Patient does admit to history of frequent kidney stones. States he has passed these on his own usually. Patient does state that the pain was bilateral in his leg area, more so in his left side than right, rated a 10 out of 10 on pain scale and was intermittent in nature, denies any known aggravating or alleviating factors. Denies any recent illness including fever, chills, cough, abdominal pain, nausea, vomiting, diarrhea dysuria. Patient does follow with the primary care doctor but does not know the name. Patient denies any home medications. CBC/BMP: 06/17/17 0535 06/18/17 0503 Significant Findings Laboratory Tests Test 06/15/17 17:20 06/16/17 05:07 06/16/17 15:34 06/17/17 05:35 Hemoglobin A1c 10.1 % (4.3-6.0) Red Blood Count 4.47 MIL/MM3 (4.50-5.90) Monocytes (%) (Auto) 9.8 % (0.0-8.0) Blood Urea Nitrogen 4 MG/DL (7-18) Random Glucose 114 MG/DL (74-106) 404 MG/DL (74-106) Sodium Level 146 MEQ/L (136-145) 146 MEQ/L (136-145) Chloride Level 120 MEQ/L (98-107) 110 MEQ/L (98-107) Anion Gap 3 MEQ/L (5-15) 4 MEQ/L (5-15) Estimat Glomerular Filtration Rate 62 ML/MIN (>89) 45 ML/MIN (>89) 81 ML/MIN (>89) Creatinine 1.63 MG/DL (0.60-1.30) Potassium Level 3.3 MEQ/L (3.5-5.1) Carbon Dioxide Level 32.2 MEQ/L (21.0-32.0) Test 06/18/17 05:03 Calcium Level 8.4 MG/DL (8.5-10.1) Potassium Level 3.1 MEQ/L (3.5-5.1) Chloride Level 111 MEQ/L (98-107) Anion Gap 4 MEQ/L (5-15) Imaging Last Impressions Abdomen X-Ray 06/16/17 0600 Signed Impressions: Service Date/Time: Sunday, June 16, 2017 04:55 - CONCLUSION: No discernible renal or ureteral stones. Felix Diggs Jr., MD PE at Discharge GENERAL: Disheveled CARDIOVASCULAR: Regular rate and rhythm. RESPIRATORY: No accessory muscle use. Clear to auscultation. Breath sounds equal bilaterally. GASTROINTESTINAL: Abdomen soft, non-tender, nondistended. Normoactive bowel sounds x4. MUSCULOSKELETAL: No obvious deformities. Extremities without edema. NEUROLOGICAL: Awake and alert. No obvious cranial nerve deficits. Normal speech , edentulous. Pt update on day of discharge Patient reports he is feeling okay. We discussed discharge planning at length. He is adamant that he will not take any insulin. He is agreeable to taking metformin. We discussed outpatient follow-up and he is willing to follow at [facility]. Hospital Course 46-year-old male patient known medical history of ADHD, OCD and hypertension who presented to the ED with a 2 day history of bilateral flank pain. Patient does admit to history of frequent kidney stones. Treatment course detailed below: Nephrolithiasis Hydronephrosis Acute kidney injury suspect secondary to above- worsening - Abdomen/pelvis CT reviewed showing 4 x 7 calcified proximal ureteral calculus with resultant moderate left-sided hydronephrosis. Additional bilateral nonobstructing calyceal calculi measuring up to 8 mm on the left and 3-4 mm in the right. - Urology following he is s/p Cystourethroscopy, Left retrograde pyelogram. Left ureteral stent placement. - Creatinine 1.4 upon presentation. Treated with IV fluid, renal function normalized. Right lower lobe community-acquired pneumonia - CT 06/15/17 reviewed showing patchy diffuse airspace consolidation in the right lower lobe consistent with infectious or inflammatory process. - Patient completed treatment with azithromycin and Rocephin. Newly diagnosed type 2 diabetes: Elevated random glucose upon presentation: 271. Hemoglobin A1c found to be 10.1. Patient denies any history of diabetes. -The patient adamantly refused insulin therapy. He was extensively counseled regarding diabetic diet. He was seen by a certified lactation educator. He states he will not use insulin when he leaves the hospital. He agreed to take metformin and states he will follow-up outpatient. He was given information for [facility] Pt Condition on Discharge: Good Discharge Disposition: Discharge Home Discharge Time: <= 30 minutes Discharge Instructions DIET: Follow Instructions for: Diabetic Diet Activities you can perform: Regular-No Restrictions Follow up Referrals: PCP Follow-up with [facility] Urology New Medications: Blood Glucose Monitoring W/Device (Glucocom Blood Glucose Mo W/Device) 1 Kit Kit KIT .XX DIRECTED for Blood Sugar Management, #1 Glucocom Test Strips (Glucocom Test Strips) 1 Traci Traci EA .XX DIRECTED for Blood Sugar Management, #1 Insulin Syringe/U-100/31G X 5/16" 1 ml (Insulin Syringe/U-100/31G X 5/16" 1 ml) 31 Gauge X 5/16" Mis EA .XX DIRECTED for Blood Sugar Management, #1 0 Refills Lancets (Lancets) 1 Mis Mis EA .XX DIRECTED for Blood Sugar Management, #1 0 Refills Metformin (Metformin) 500 Mg Tab 500 MG PO BIDPC for Blood Sugar Management, #60 TAB 0 Refills Parenteral Therapy Supplies (Sharpsafety Sharps Contai) 1 Mis Mis EA .XX DIRECTED, #1 0 Refills Naman Leon MD Jun 18, 2017 13:54
--- NOTE | 2017-06-18 13:58 | HHI.DCPOC ---
Discharge Care Plan Diagnosis: (1) Type 2 diabetes mellitus (2) Nephrolithiasis (3) Hydronephrosis (4) Pneumonia Goals to Promote Your Health * To prevent worsening of your condition and complications * To maintain your health at the optimal level Directions to Meet Your Goals Take your medications as prescribed Follow your dietary instruction Follow activity as directed Keep your appointments as scheduled Take your immunizations and boosters as scheduled If your symptoms worsen call your PCP, if no PCP go to Urgent Care Center or Emergency Room Smoking is Dangerous to Your Health. Avoid second hand smoke Call the 24-hour hour crisis hotline for domestic abuse at Naman Leon MD Jun 18, 2017 13:58
== END 2017-06-18 18:12 | disposition home or self-care (01) ==
LOC: PHEDDLT 12:35 → PH3A 12:45 → N06B 19:46
PROVIDERS: ADMIT Family Medicine; ATTEND Family Medicine
DX: N13.2 Hydronephrosis with renal and ureteral calculous obstruction (principal); J18.9 Pneumonia, unspecified organism; I10 Essential (primary) hypertension; F90.9 Attention-deficit hyperactivity disorder, unspecified type; F42.9 Obsessive-compulsive disorder, unspecified; F41.8 Other specified anxiety disorders; E78.5 Hyperlipidemia, unspecified; E11.9 Type 2 diabetes mellitus without complications; R94.31 Abnormal electrocardiogram [ECG] [EKG]; Z87.442 Personal history of urinary calculi
CPT/HCPCS: 00910; 52332; 74018; 74176; 74420; 80048; 80053; 81001; 82948; 83036; 83690; 83735; 84484; 85025; 93005; 96361; 96365; 96366; 96372; 96375; 96376; 99285; C1769; C2617; G0378; J0456; J0696; J1100; J1815; J1885; J1956; J2250; J2270; J2370; J2405; J7030; J7040; J7050; J7120; Q9967

== ENCOUNTER 2017-07-06 09:59 | Emergency (ER) | payer OTHER ==
[~2017-07-06] VITALS: Ht 177.8 cm; Wt 100.0 kg
[~2017-07-06 09:59] MED LIST changes: +BIOM30MI; +GLUCKIT15; +GLUCTES12; -HYDR10SO PO; +INSU1MIS15; +LANCETS1 MI1; -LISI-363 PO; -LITH1TAB3 PO; +METF500T PO; -METHY10 PO
[2017-07-06 10:12] VITALS: BP 120/73; PULSE 96; RESP 18; TEMP 98.4; O2SAT 98
[2017-07-06] MEDS ORDERED: LISI10TA3 PO (10:35)
[2017-07-06] MEDS ORDERED: TAMS5CAP PO (10:35)
[2017-07-06] MEDS ORDERED: SODIUM CHLOR 0.9% 1000 ML INJ 1,000 ML IV SCH (11:35)
--- NOTE | 2017-07-06 11:39 | PD ---
HPI Chief Complaint: Flank/Kidney Pain Time Seen by Provider: 11:13 Travel History International Travel<30 days: No Contact w/Intl Traveler<30days: No Traveled to known affect area: No History of Present Illness HPI 46-year-old male with PMH of HTN, DM, left sided kidney stones with hydronephrosis status post stent placement presents to the ED for evaluation of 10/10 left flank pain. Constant, throbbing, no alleviating or exacerbating factors. Patient endorses chills. He has not measured a temperature at home. He denies nausea, vomiting, dysuria, hematuria. He states that his urine "is completely clear." He has not followed up with Dr. upt[place] on outpatient basis since having his stent placed. No treatment attempted at home. PFSH Past Medical History ADHD: Yes Arthritis: Yes Bipolar Disorder: Yes (OCD) Anxiety: Yes Depression: Yes High Cholesterol: Yes Chest Pain: Yes Diabetes: Yes Patient Takes Glucophage: Yes Diminished Hearing: No Hypertension: Yes Kidney Stones: Yes Musculoskeletal: Yes (CHRONIC BACK PAIN) Reproductive: No Seizures: Yes (one - 2014) Past Surgical History Abdominal Surgery: Yes (gallbladder ) Cardiac Surgery: No Cholecystectomy: Yes Genitourinary Surgery: Yes (stent placed to L kidney) Joint Replacement: Yes (L5 S1 REPAIR) Social History Alcohol Use: No Tobacco Use: No Substance Use: No Allergies-Medications (Allergen,Severity, Reaction): Coded Allergies: No Known Allergies (Verified Adverse Reaction, Unknown, 07/06/17) Reported Meds & Prescriptions Reported Meds & Active Scripts Active Tylenol (Acetaminophen) 325 Mg Tab 650 Mg PO Q6H PRN Levaquin (Levofloxacin) 750 Mg Tablet 750 Mg PO DAILY 5 Days Metformin (Metformin HCl) 500 Mg Tab 500 Mg PO BIDPC Reported Flomax (Tamsulosin HCl) 0.4 Mg Cap 0.4 Mg PO HS Lisinopril 10 Mg Tab 10 Mg PO DAILY Review of Systems Except as stated in HPI: all other systems reviewed are Neg Physical Exam Narrative GENERAL: Well-nourished, well-developed white male no acute distress. SKIN: Focused skin assessment warm/dry. HEAD: Normocephalic. EYES: No scleral icterus. No injection or drainage. NECK: Supple, trachea midline. No JVD or lymphadenopathy. CARDIOVASCULAR: Regular rate and rhythm without murmurs, gallops, or rubs. RESPIRATORY: Breath sounds equal bilaterally. No accessory muscle use. GASTROINTESTINAL: Abdomen soft, non-tender, nondistended. Positive left-sided flank pain. MUSCULOSKELETAL: No cyanosis, or edema. BACK: Nontender without obvious deformity. Positive left-sided CVA tenderness. Data Data Last Documented VS Vital Signs Date Time Temp Pulse Resp B/P (MAP) Pulse Ox O2 Delivery O2 Flow Rate FiO2 07/06/17 16:01 98.5 07/06/17 16:00 79 16 97 Room Air Orders Orders Basic Metabolic Panel (Bmp) (07/06/17 11:35) Complete Blood Count With Diff (07/06/17 11:35) Urinalysis - C+S If Indicated (07/06/17 11:35) Ct Abd/Pel W/O Iv Contrast (07/06/17 11:35) Iv Access Insert/Monitor (07/06/17 11:35) Ecg Monitoring (07/06/17 11:35) Oximetry (07/06/17 11:35) Sodium Chlor 0.9% 1000 Ml Inj (Ns 1000 M (07/06/17 11:35) Sodium Chloride 0.9% Flush (Ns Flush) (07/06/17 11:45) Ketorolac Inj (Toradol Inj) (07/06/17 11:45) Morphine Inj (Morphine Inj) (07/06/17 12:45) Potassium Chloride (Kcl) (07/06/17 13:15) Urine Culture (07/06/17 14:55) Levofloxacin 750 Mg Premix Inj (Levaquin (07/06/17 15:45) Mandatory Outpatient Referral (07/06/17 16:07) Ed Discharge Order (07/06/17 16:12) Labs Laboratory Tests Test 07/06/17 12:00 07/06/17 14:55 White Blood Count 15.1 TH/MM3 Red Blood Count 4.97 MIL/MM3 Hemoglobin 15.0 GM/DL Hematocrit 44.3 % Mean Corpuscular Volume 89.2 FL Mean Corpuscular Hemoglobin 30.2 PG Mean Corpuscular Hemoglobin Concent 33.9 % Red Cell Distribution Width 13.5 % Platelet Count 368 TH/MM3 Mean Platelet Volume 7.8 FL Neutrophils (%) (Auto) 75.3 % Lymphocytes (%) (Auto) 13.2 % Monocytes (%) (Auto) 8.7 % Eosinophils (%) (Auto) 2.3 % Basophils (%) (Auto) 0.5 % Neutrophils # (Auto) 11.4 TH/MM3 Lymphocytes # (Auto) 2.0 TH/MM3 Monocytes # (Auto) 1.3 TH/MM3 Eosinophils # (Auto) 0.3 TH/MM3 Basophils # (Auto) 0.1 TH/MM3 CBC Comment DIFF FINAL Differential Comment Blood Urea Nitrogen 8 MG/DL Creatinine 1.13 MG/DL Random Glucose 153 MG/DL Calcium Level 8.7 MG/DL Sodium Level 133 MEQ/L Potassium Level 3.2 MEQ/L Chloride Level 106 MEQ/L Carbon Dioxide Level 18.6 MEQ/L Anion Gap 8 MEQ/L Estimat Glomerular Filtration Rate 69 ML/MIN Urine Color LIGHT-YELLOW Urine Turbidity HAZY Urine pH 5.5 Urine Specific [place] 1.014 Urine Protein 30 mg/dL Urine Glucose (UA) NEG mg/dL Urine Ketones NEG mg/dL Urine Occult Blood MOD Urine Nitrite NEG Urine Bilirubin NEG Urine Urobilinogen LESS THAN 2.0 MG/DL Urine Leukocyte Esterase MOD Urine RBC 21 /hpf Urine WBC 2 /hpf Urine Bacteria MOD /hpf Microscopic Urinalysis Comment CULTURE INDICATED MDM Medical Decision Making Medical Screen Exam Complete: Yes Emergency Medical Condition: Yes Differential Diagnosis Nephroureterolithiasis versus hydronephrosis versus pyelonephritis versus UTI versus other Narrative Course 46-year-old male with PMH of HTN, DM, left sided kidney stones with hydronephrosis status post stent placement presents to the ED for evaluation of 10/10 left flank pain. He has not followed up with urology. Patient is afebrile on presentation. On exam he has left sided flank tenderness. IV was established. Patient was administered 1 L normal saline, IV Toradol, 4 mg morphine. Leukocytosis of 15.1. Mild hypokalemia at 3.2. BUN 8, creatinine 1.13. UA is hazy, moderate occult blood, moderate leukocyte esterase, 2 WBCs and moderate bacteria. Culture indicated. I reviewed the patient's record. No microbiology results are available. He was administered 750 mg Levaquin IV. Potassium was replaced orally. I discussed the case with Dr. Washington, on-call for Dr. Chinchilla. He recommends p.o. antibiotics and close follow-up. Patient is uninsured. Mandatory outpatient consult was placed on his behalf. He is prescribed a short course of Levaquin and a few doses of Tylenol. He is instructed to take all the antibiotics as prescribed, return for worsening symptoms. I explained to the outpatient consult process. Patient acknowledged understanding of the instructions. He is stable and discharged home. Diagnosis Primary Impression: Pyelonephritis Referrals: Raymond Chinchilla MD Patient Instructions: General Instructions, Kidney Infection (ED) Additional Instructions: Rest, hydrate. Begin antibiotics tomorrow and take them until every pill is gone. Take Tylenol as prescribed, as needed for pain. A mandatory outpatient consult has been placed on your behalf. Either Dr. Meadows's office or the hospital will call you in a few days to arrange follow-up. Return to the ED for worsening symptoms or any urgent or emergent medical condition. Med/Other Pt SpecificInfo: Prescription(s) given Scripts Acetaminophen (Tylenol) 325 Mg Tab 650 MG PO Q6H Y for PAIN SCALE 1 TO 10, #15 TAB 0 Refills Prov: Morris Perales MD 07/06/17 Levofloxacin (Levaquin) 750 Mg Tablet 750 MG PO DAILY for Infection for 5 Days, #5 TAB 0 Refills Prov: Morris Perales MD 07/06/17 Disposition: 01 DISCHARGE HOME Condition: Stable Mady Lozano July 06, 2017 11:39
[2017-07-06] MEDS ORDERED: KETOROLAC TROMETHAMINE 30 MG/ML (IVP) VIAL IVP ONE (11:45)
[2017-07-06] MEDS ORDERED: SODIUM CHLORIDE 0.9% FLUSH 10 ML FLUSH IV FLUSH PRN (11:45)
--- NOTE | 2017-07-06 12:20 | RADRPT ---
EXAM DATE/TIME: 07/06/2017 11:55 [facility] COMPARISON: CT ABDOMEN & PELVIS W/O CONTRAST, June 15, 2017, 8:14. INDICATIONS : Left flank pain. ORAL CONTRAST: No oral contrast ingested. RADIATION DOSE: 15.27 CTDIvol (mGy) MEDICAL HISTORY : Seizures. Hypertension. Diabetes mellitus type 2. SURGICAL HISTORY : Cholecystectomy. Left ureteral stent. ENCOUNTER: Initial ACUITY: 2 days PAIN SCALE: 5/10 LOCATION: Left flank TECHNIQUE: Volumetric scanning of the abdomen and pelvis was performed. Using automated exposure control and ad justment of the mA and/or kV according to patient size, radiation dose was kept as low as reasonably achievable to obtain optimal diagnostic quality images. DICOM format image data is available electro nically for review and comparison. FINDINGS: LOWER LUNGS: Improving right lower lung infiltrate compared to the prior study. Left lung bases clear. LIVER: Homogeneous density. Stable small hepatic cyst. There is no dilation of the biliary tree. No gallbl adder, surgically removed.. SPLEEN: Normal size without lesion. PANCREAS: Within normal limits. KIDNEYS: There continues to be hydronephrosis of the left collecting system. However, there is now a left side d double-J stent in place. The stent appears to be in good position. There is no hydronephrosis of th e right collecting system. The previously noted left ureteral stone is not definitely seen on today's study. The previously noted stone in the lower pole of kidney is not seen on today's study. No defin ite right renal calculi are demonstrated. ADRENAL GLANDS: Within normal limits. VASCULAR: There is no aortic aneurysm. BOWEL/MESENTERY: The stomach, small bowel, and colon demonstrate no acute abnormality. There is no free intraperitone al air or fluid. ABDOMINAL WALL: Within normal limits. RETROPERITONEUM: There is no lymphadenopathy. BLADDER: No wall thickening or mass. REPRODUCTIVE: Within normal limits. INGUINAL: There is no lymphadenopathy or hernia. MUSCULOSKELETAL: Within normal limits for patient age. CONCLUSION: 1. There is a left sided double-J stent in place. The stent appears to be in good position. There con tinues to be some hydronephrosis of the left collecting system. 2. No definite renal calculi are seen on today's study. 3. Otherwise, no other new or significant changes are seen compared to the prior exam. 4. Improving right lower lung infiltrate compared to the prior study. Issac J. Siragusa, MD on July 06, 2017 at 12:13 Board Certified Radiologist. This report was verified electronically.
[2017-07-06 12:32] LABS: AUTOMATED NEUTROPHIL # 11.4 TH/MM3 (1.8-7.7); BASOPHIL # 0.1 TH/MM3 (0-0.2); BASOPHIL % 0.5 % (0.0-2.0); EOSINOPHIL # 0.3 TH/MM3 (0-0.4); EOSINOPHIL % 2.3 % (0.0-4.0); HEMATOCRIT 44.3 % (39.0-51.0); LYMPH % 13.2 % (9.0-44.0); MEAN CELL VOLUME 89.2 FL (80.0-100.0); MEAN CORPUSCULAR HEMOGLOBIN 30.2 PG (27.0-34.0); MEAN CORPUSCULAR HGB CONC 33.9 % (32.0-36.0); MEAN PLATELET VOLUME 7.8 FL (7.0-11.0); MONO % 8.7 % (0.0-8.0); MONOCYTE # 1.3 TH/MM3 (0-0.9); NEUT % 75.3 % (16.0-70.0); PLATELET COUNT 368 TH/MM3 (150-450); RED BLOOD COUNT 4.97 MIL/MM3 (4.50-5.90); RED CELL DISTRIBUTION WIDTH 13.5 % (11.6-17.2); WHITE BLOOD COUNT 15.1 TH/MM3 (4.0-11.0)
[2017-07-06] MEDS ORDERED: MORPHINE SULFATE 4 MG/ML INJ IV PUSH ONE (12:45)
--- NOTE | 2017-07-06 12:47 | PD ---
Data Data Last Documented VS Vital Signs Date Time Temp Pulse Resp B/P (MAP) Pulse Ox O2 Delivery O2 Flow Rate FiO2 07/06/17 10:12 98.4 96 18 120/73 (89) 98 Orders Orders Basic Metabolic Panel (Bmp) (07/06/17 11:35) Complete Blood Count With Diff (07/06/17 11:35) Urinalysis - C+S If Indicated (07/06/17 11:35) Ct Abd/Pel W/O Iv Contrast (07/06/17 11:35) Iv Access Insert/Monitor (07/06/17 11:35) Ecg Monitoring (07/06/17 11:35) Oximetry (07/06/17 11:35) Sodium Chlor 0.9% 1000 Ml Inj (Ns 1000 M (07/06/17 11:35) Sodium Chloride 0.9% Flush (Ns Flush) (07/06/17 11:45) Ketorolac Inj (Toradol Inj) (07/06/17 11:45) Morphine Inj (Morphine Inj) (07/06/17 12:45) Labs Laboratory Tests Test 07/06/17 12:00 White Blood Count 15.1 TH/MM3 Red Blood Count 4.97 MIL/MM3 Hemoglobin 15.0 GM/DL Hematocrit 44.3 % Mean Corpuscular Volume 89.2 FL Mean Corpuscular Hemoglobin 30.2 PG Mean Corpuscular Hemoglobin Concent 33.9 % Red Cell Distribution Width 13.5 % Platelet Count 368 TH/MM3 Mean Platelet Volume 7.8 FL Neutrophils (%) (Auto) 75.3 % Lymphocytes (%) (Auto) 13.2 % Monocytes (%) (Auto) 8.7 % Eosinophils (%) (Auto) 2.3 % Basophils (%) (Auto) 0.5 % Neutrophils # (Auto) 11.4 TH/MM3 Lymphocytes # (Auto) 2.0 TH/MM3 Monocytes # (Auto) 1.3 TH/MM3 Eosinophils # (Auto) 0.3 TH/MM3 Basophils # (Auto) 0.1 TH/MM3 CBC Comment DIFF FINAL Differential Comment MDM Supervised Visit with VERENA: Yes Narrative Course I, Dr. Perales, have reviewed the advance practice practitioner's documentation and am in agreement, met with the patient face to face, made the diagnosis, and the medical decision making was done by me. *My assessment and Findings: I have met with the patient. He is having acute left flank pain. He has stent in position there. CT scan is reviewed. Stent is noted but no stone disease seen. There is a bit of hydronephrosis there on the left side. Labs are reviewed. Pain medicine given. Will need outpatient urology follow-up Morris Perales MD July 06, 2017 12:47
[2017-07-06 12:52] LABS: BICARBONATE 18.6 MEQ/L (21.0-32.0); CALCIUM 8.7 MG/DL (8.5-10.1); CREATININE 1.13 MG/DL (0.60-1.30)
[2017-07-06] MEDS ORDERED: POTASSIUM CHLORIDE 20 MEQ CONTROLLED RELEASE TAB PO ONE (13:15)
[2017-07-06] MEDS ORDERED: cefTRIAXone INJ 1,000 MG in SODIUM CHLORIDE 0.9% INJ 100 ML IV ONE (13:30)
[2017-07-06 14:43] VITALS: BP 109/71; PULSE 88; RESP 16; O2SAT 97
[2017-07-06 15:23] LABS: BACTERIA, URINE MOD /hpf; BILIRUBIN, URINE NEG (NEG); BLOOD, URINE MOD (NEG); GLUCOSE,URINE NEG (NEG); KETONE, URINE NEG (NEG); NITRITE,URINE NEG (NEG); PH, URINE 5.5 (5.0-8.5); URINE COLOR LIGHT-YELLOW (YELLW/STRAW); URINE LEUKOCYTE ESTERASE MOD (NEG)
[2017-07-06] MEDS ORDERED: LEVOFLOXACIN 750 MG PREMIX INJ 150 ML IV ONE (15:45)
[2017-07-06 16:00] VITALS: BP 102/67; PULSE 79; RESP 16; O2SAT 97
[2017-07-06 16:01] VITALS: TEMP 98.5
[2017-07-06] MEDS ORDERED: LEVA750T9 PO (16:09)
[2017-07-06] MEDS ORDERED: TYLE325T PO (16:10)
== END 2017-07-06 18:50 | disposition home or self-care (01) ==
LOC: NEPC 09:59
DX: N13.6 Pyonephrosis (principal); E11.9 Type 2 diabetes mellitus without complications; I10 Essential (primary) hypertension; Z79.84 Long term (current) use of oral hypoglycemic drugs
CPT/HCPCS: 74176; 80048; 81001; 85025; 87086; 96361; 96365; 96366; 96375; 99284; J1885; J1956; J2270; J7030